=== PATIENT | female | born 1995 | race African-American/Black ===

== ENCOUNTER 2020-09-02 13:29 | Emergency (ER) | payer OTHER ==
[~2020-09-02] VITALS: Ht 162.6 cm; Wt 117.8 kg
[2020-09-02] MEDS ORDERED: PREDNISONE 20 M20 MG PO (14:36)
[2020-09-02 14:53] VITALS: BP 129/89
== END 2020-09-02 14:54 | disposition home or self-care (01) ==
LOC: ER 13:29
DX: G51.0 Bell's palsy (principal)